=== PATIENT | female | born 1985 | race Caucasian/White ===

== ENCOUNTER 2017-03-05 01:57 | Emergency (ER) | payer MEDICAID ==
[~2017-03-05] VITALS: Ht 162.6 cm; Wt 98.0 kg
[~2017-03-05 01:57] MED LIST: ALBU6.7H INH; PRED20 PO; ZITH250T PO; ZOFR4TAB3 SL
[2017-03-05 02:03] VITALS: BP 132/87; PULSE 85; RESP 16; TEMP 98.2; O2SAT 98
[2017-03-05] MEDS ORDERED: BENA25TA3 PO (02:22)
[2017-03-05] MEDS ORDERED: LIDOCAINE HCL 2% JELLY 5 ML SYRINGE TOPICAL ONE (03:15)
--- NOTE | 2017-03-05 03:15 | PD ---
HPI Chief Complaint: Skin Problem Time Seen by Provider: 02:48 Travel History International Travel<30 days: No Contact w/Intl Traveler<30days: No Traveled to known affect area: No History of Present Illness HPI The patient is a 31-year-old female that 4 days ago had a pedicure. During the course of the pedicure she was scrubbed with an exfoliat Landers and on the anterior tibial areas bilaterally. She developed a rash over the area that was scrubbed with the next Landers in on the anterior tibial area bilaterally. The rash was an intense burning rash and not itching. She has no known allergies. The rash developed within minutes of the scrubbing. 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 Penicillin (Verified Allergy, Severe, HIVES, 03/05/17) Doxycycline (Verified Allergy, Mild, Hives, 03/05/17) Sulfa (Verified Allergy, Mild, RASH, 03/05/17) Reported Meds & Prescriptions Reported Meds & Active Scripts Active Reported Benadryl Allergy (Diphenhydramine HCl) 25 Mg Tab 25 Mg PO Q6H PRN Review of Systems Except as stated in HPI: all other systems reviewed are Neg Physical Exam Narrative GENERAL: Well-nourished, well-developed patient in moderate apparent distress with her burning bilateral skin rash on the legs. Her vital signs are normal. SKIN: Focused skin assessment warm/dry. There is an erythematous, macular rash that is tender to the touch on the anterior tibial areas extending from below the knees to above the ankles. No vesicles are seen. HEAD: Normocephalic. EYES: No scleral icterus. No injection or drainage. NECK: Supple, trachea midline. No JVD or lymphadenopathy. CARDIOVASCULAR: Regular rate and rhythm without murmurs, gallops, or rubs. RESPIRATORY: Breath sounds equal bilaterally. No accessory muscle use. GASTROINTESTINAL: Abdomen soft, non-tender, nondistended. MUSCULOSKELETAL: No cyanosis, or edema. BACK: Nontender without obvious deformity. No CVA tenderness. Data Data Last Documented VS Vital Signs Date Time Temp Pulse Resp B/P Pulse Ox O2 Delivery O2 Flow Rate FiO2 03/05/17 02:14 20 03/05/17 02:10 03/05/17 02:03 98.2 85 98 Room Air Orders Lidocaine 2% Jelly (Xylocaine 2% Jelly) (03/05/17 03:15) [facility] Medical Decision Making Medical Screen Exam Complete: Yes Emergency Medical Condition: Yes Medical Record Reviewed: Yes Differential Diagnosis Allergic reaction, chemical burn, traumatic abrasions Narrative Course The patient has a chemical burn. It is not pruritic, it is simply a burning sensation. Plan: The patient is given topical lidocaine gel. Diagnosis Primary Impression: First degree chemical burn of lower leg Additional Instructions: Apply to your legs about 3 times daily as needed for pain. Try to use the lidocaine on as few times as possible. Scripts Lidocaine Topical 2 % Jel1 Applic TOPICAL QID #30 ML Ref 0 Prov:Pa Chappell MD 03/05/17 Disposition: 01 DISCHARGE HOME Condition: Stable Pa Chappell MD Mar 05, 2017 03:15
[2017-03-05] MEDS ORDERED: LIDO2GEL11 TOPICAL (04:24)
[2017-03-05 05:03] VITALS: BP 128/74
== END 2017-03-05 05:06 | disposition home or self-care (01) ==
LOC: PHED 01:57
DX: T65.91XA Toxic effect of unspecified substance, accidental (unintentional), initial encounter (principal); T24.532A Corrosion of first degree of left lower leg, initial encounter; T24.531A Corrosion of first degree of right lower leg, initial encounter; J45.909 Unspecified asthma, uncomplicated; F17.210 Nicotine dependence, cigarettes, uncomplicated; X58.XXXA Exposure to other specified factors, initial encounter; Y93.89 Activity, other specified; Y92.513 Shop (commercial) as the place of occurrence of the external cause; Y99.8 Other external cause status
CPT/HCPCS: 99282

== ENCOUNTER 2017-12-11 13:16 | Emergency (ER) | payer MEDICAID ==
[~2017-12-11] VITALS: Ht 162.6 cm; Wt 96.4 kg
[~2017-12-11 13:16] MED LIST changes: -ALBU6.7H INH; +BENA25TA3 PO; +LIDO2GEL11 TOPICAL; -PRED20 PO; -ZITH250T PO; -ZOFR4TAB3 SL
[2017-12-11 13:51] VITALS: BP 156/91; PULSE 96; RESP 16; TEMP 98.3; O2SAT 95
--- NOTE | 2017-12-11 14:27 | PD ---
HPI Chief Complaint: Skin Problem Time Seen by Provider: 14:22 Travel History International Travel<30 days: No Contact w/Intl Traveler<30days: No Traveled to known affect area: No History of Present Illness HPI 32-year-old female presents for evaluation of pruritic scalp. Symptoms started several months ago. She was seen a medical language specialist office where a biopsy was performed and revealed no obvious abnormality. Some persistent prompted evaluation today. No aggravating or alleviating factors. No other complaints. History Social History Alcohol Use: Yes (OCCASIONAL) Tobacco Use: Yes (3/4 PPD) Allergies-Medications (Allergen,Severity, Reaction): Coded Allergies: clindamycin (Unverified Allergy, Severe, Rash, 12/11/17) PATIENT STATES SHE IS NOT ALLERGIC. penicillin G (Unverified Allergy, Severe, HIVES, 12/11/17) Sulfa (Sulfonamide Antibiotics) (Unverified Allergy, Mild, RASH, 12/11/17) doxycycline (Unverified Allergy, Mild, Hives, 12/11/17) Reported Meds & Prescriptions Reported Meds & Active Scripts Active Review of Systems General / Constitutional: No: Fever, Chills Skin: Positive Itching Physical Exam Narrative GENERAL: Well-nourished female in no acute distress SKIN: Warm and dry. The patient has some scattered dry irritated areas on the scalp. No areas of her loss, no erythema or induration. HEAD: Atraumatic. Normocephalic. EYES: Pupils equal and round. No scleral icterus. No injection or drainage. ENT: No nasal bleeding or discharge. Mucous membranes pink and moist. NECK: Trachea midline. No JVD. CARDIOVASCULAR: Regular rate and rhythm. No murmur appreciated. RESPIRATORY: No accessory muscle use. Clear to auscultation. Breath sounds equal bilaterally. Data Data Last Documented VS Vital Signs Date Time Temp Pulse Resp B/P (MAP) Pulse Ox O2 Delivery O2 Flow Rate FiO2 12/11/17 13:51 98.3 96 16 156/91 (112) 95 MDM Medical Screen Exam Complete: Yes Emergency Medical Condition: No Narrative Course A medical screening exam was performed: At the time of evaluation the presenting medical condition was determined not to be of an emergent nature. The patient was given the option of receiving additional care, but declined. Patient was given options for additional community resources from which to obtain care. The Patient Has Been advised to seek medical attention for their presenting complaint. The patient has been advised to return to the ER at any time if an emergent condition develops. Primary Impression: Encounter for medical screening examination Syed Guzman Dec 11, 2017 14:27
== END 2017-12-11 14:30 | disposition left against medical advice (07) ==
LOC: PHED 13:16 → PHEFT 14:30
DX: L29.8 Other pruritus (principal)
CPT/HCPCS: 99281